=== PATIENT | female | born 1970 | race Caucasian/White ===

== ENCOUNTER 2019-10-17 11:14 | Emergency (ER) | payer OTHER ==
[~2019-10-17] VITALS: Ht 162.6 cm; Wt 97.5 kg
[2019-10-17] MEDS ORDERED: Mobic15 MG PO (12:49)
[2019-10-17] MEDS ORDERED: Norco 10-325 T1 EACH PO (12:49)
[2019-10-17] MEDS ORDERED: Zanaflex4 M1 PO (12:49)
== END 2019-10-17 13:06 | disposition home or self-care (01) ==
LOC: ER 11:14
DX: G89.29 Other chronic pain (principal); M54.5 Low back pain; Z88.5 Allergy status to narcotic agent; Z88.8 Allergy status to other drugs, medicaments and biological substances
CPT/HCPCS: 99283

== ENCOUNTER 2019-10-25 11:28 | Emergency (ER) | payer OTHER ==
[~2019-10-25] VITALS: Ht 162.6 cm; Wt 99.8 kg
[~2019-10-25 11:28] MED LIST: Mobic15 MG PO; Norco 10-325 T1 EACH PO; Zanaflex4 M1 PO
[2019-10-25] MEDS ORDERED: Robaxin-750750 MG PO (13:56)
[2019-10-25] MEDS ORDERED: Tamiflu75 MG PO (14:24)
== END 2019-10-25 14:28 | disposition home or self-care (01) ==
LOC: ER 11:28
DX: G89.29 Other chronic pain (principal); M54.5 Low back pain; Z76.0 Encounter for issue of repeat prescription; Z20.828 Contact with and (suspected) exposure to other viral communicable diseases; J44.9 Chronic obstructive pulmonary disease, unspecified; Z88.5 Allergy status to narcotic agent; Z88.8 Allergy status to other drugs, medicaments and biological substances; Z79.899 Other long term (current) drug therapy
CPT/HCPCS: 99283

== ENCOUNTER 2019-11-09 14:35 | Emergency (ER) | payer OTHER ==
[~2019-11-09] VITALS: Ht 162.6 cm; Wt 90.7 kg
[~2019-11-09 14:35] MED LIST changes: +Robaxin-750750 MG PO; +Tamiflu75 MG PO
[2019-11-09] MEDS ORDERED: Norco 10-325 T1 EACH PO (17:04)
== END 2019-11-09 17:30 | disposition home or self-care (01) ==
LOC: ER 14:35
DX: S93.401A Sprain of unspecified ligament of right ankle, initial encounter (principal); J44.9 Chronic obstructive pulmonary disease, unspecified; M19.90 Unspecified osteoarthritis, unspecified site; E03.9 Hypothyroidism, unspecified; Z88.8 Allergy status to other drugs, medicaments and biological substances; Z79.899 Other long term (current) drug therapy; W10.9XXA Fall (on) (from) unspecified stairs and steps, initial encounter
CPT/HCPCS: 29515; 99283-25

== ENCOUNTER → 2019-11-24 | Outpatient (CLI) | payer OTHER ==
[2019-11-24 17:03] LABS: U Amphetamine Screen Not Detected; U Barbituate Screen Not Detected; U Benzodiazapine Screen Not Detected; U Buprenorphine Screen Not Detected; U Cannabinoids Screen Not Detected; U Cocaine Screen Not Detected; U Methadone Screen Not Detected; U Methamphetamine Screen Not Detected; U Opiates Screen DETECTED; U Oxycodone Screen Not Detected; U Phencyclidine Screen Not Detected; U Propoxyphene Screen Not Detected
== END ==
LOC: LAB 15:46 → LAB SHORT 15:46
PROVIDERS: Nurse Practitioner Family
DX: Z02.89 Encounter for other administrative examinations (principal)

== ENCOUNTER 2020-03-19 10:14 | Emergency (ER) | payer OTHER ==
[~2020-03-19] VITALS: Ht 162.6 cm; Wt 99.8 kg
[2020-03-19] MEDS ORDERED: Hydrocodone-Ap1 EA20 PO (10:28)
[2020-03-19] MEDS ORDERED: ZOLPIDEM TART6.25 MG PO (10:28)
[2020-03-19] MEDS ORDERED: ESCI10 (10:40)
[2020-03-19] MEDS ORDERED: LAMO100 (10:41)
[2020-03-19] MEDS ORDERED: GABA100 (10:41)
[2020-03-19] MEDS ORDERED: Crutch1 EACH MISC (11:10)
== END 2020-03-19 11:31 | disposition home or self-care (01) ==
LOC: ER 10:14
DX: S93.402A Sprain of unspecified ligament of left ankle, initial encounter (principal); S80.02XA Contusion of left knee, initial encounter; J44.9 Chronic obstructive pulmonary disease, unspecified; I95.9 Hypotension, unspecified; Z88.8 Allergy status to other drugs, medicaments and biological substances; Z79.899 Other long term (current) drug therapy; W18.30XA Fall on same level, unspecified, initial encounter
CPT/HCPCS: 73560-LT; 73610; 96374; 96376; 99283-25; J1170

== ENCOUNTER 2020-08-20 13:44 | Emergency (ER) | payer OTHER ==
[~2020-08-20] VITALS: Ht 162.6 cm; Wt 97.5 kg
[~2020-08-20 13:44] MED LIST changes: +Crutch1 EACH MISC; +ESCI10; +GABA100; +Hydrocodone-Ap1 EA20 PO; +LAMO100; +ZOLPIDEM TART6.25 MG PO
[2020-08-20] MEDS ORDERED: OXYACE7.5T PO (16:45)
== END 2020-08-20 17:01 | disposition home or self-care (01) ==
LOC: ER 13:44
DX: S93.402A Sprain of unspecified ligament of left ankle, initial encounter (principal); M54.16 Radiculopathy, lumbar region; J44.9 Chronic obstructive pulmonary disease, unspecified; Z79.899 Other long term (current) drug therapy; Z88.5 Allergy status to narcotic agent; Z88.8 Allergy status to other drugs, medicaments and biological substances; W10.9XXA Fall (on) (from) unspecified stairs and steps, initial encounter
CPT/HCPCS: 72100; 73600; 96372; 99283-25; J1170; J3010

== ENCOUNTER 2021-08-19 14:22 | Emergency (ER) | payer OTHER ==
[~2021-08-19] VITALS: Ht 162.6 cm; Wt 99.8 kg
[~2021-08-19 14:22] MED LIST changes: +OXYACE7.5T PO
[2021-08-19] MEDS ORDERED: EPIPEN0.3 MG/0.3 IM (15:56)
[2021-08-19] MEDS ORDERED: Percocet 5-3251 EACH PO (16:38)
== END 2021-08-19 16:46 | disposition home or self-care (01) ==
LOC: ER 14:22
DX: M25.571 Pain in right ankle and joints of right foot (principal); M25.511 Pain in right shoulder; I10 Essential (primary) hypertension; J44.9 Chronic obstructive pulmonary disease, unspecified; F17.200 Nicotine dependence, unspecified, uncomplicated; Z88.5 Allergy status to narcotic agent; Z88.8 Allergy status to other drugs, medicaments and biological substances; Z79.899 Other long term (current) drug therapy; W18.30XA Fall on same level, unspecified, initial encounter
CPT/HCPCS: 73030; 73610; 99283; A9270

== ENCOUNTER → 2021-11-19 | Outpatient (CLI) | payer OTHER ==
[~2021-11-19] MED LIST changes: +EPIPEN0.3 MG/0.3 IM; +Percocet 5-3251 EACH PO
== END ==
LOC: LAB SHORT 12:18
DX: S21.002S Unspecified open wound of left breast, sequela (principal)
CPT/HCPCS: 87070; 87205

== ENCOUNTER → 2022-02-05 | Outpatient (CLI) | payer OTHER | END | disposition home or self-care (01) | LOC: LAB SHORT 14:30 → PLD 14:30 | DX: L72.9 Follicular cyst of the skin and subcutaneous tissue, unspecified (principal) | CPT/HCPCS: 88304 ==